=== PATIENT | male | born 1960 | race Caucasian/White ===

== ENCOUNTER 2024-07-09 09:51 | Outpatient (RCR) | payer MEDICAID, SELFPAY ==
--- NOTE | 2024-07-09 12:49 | CTCFLWUP_ITS ---
Patient: VILMA REICH : 1960 Page 2 of 2 FOLLOW UP NOTE DATE OF SERVICE: 07/09/2024 NAME: VILMA REICH ACCOUNT: [id number] : 1960 AGE: 64 INTERVAL HISTORY: Denies any problems. Patient is doing well. Says have fatigue at times but otherwise no other complaints. No change in appetite or change in the stool caliber. 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 Status post right hemicolectomy (07/07/2022) DATE OF DIAGNOSIS: 05/24/2022 STAGE/TNM: Stage II invasive adenocarcinoma well-differentiated TREATMENT HISTORY: Care?Plan Start?Date Cycle Day Intent Hemicolectomy but no chemotherapy was done HISTORY OF PRESENT ILLNESS: Vilma Reich is a 64-year-old ENG speaking male has been having diffuse abdominal discomfort for last 3 to 4 months prior to the diagnosis of colon cancer. 05/24/2022: Colonoscopy? 06/15/2022: CT scan of the abdomen and pelvis with IV contrast? 07/07/2022: Mr. Reich had right hemicolectomy? 08/09/2022: CEA 1.0 09/22/2022: CEA 1.1 09/15/2022: CT scan of the chest with IV contrast 09/25/2022: Hemoglobin 10.9, MCV 77, WBC 8.3, ANC 5.5, platelets 447,000. CEA 1.4 October 05, 2022:: Colaris test is negative for Sauceda syndrome 12/19/2023: CT scan of the chest abdomen and pelvis with IV contrast OTHER MEDICAL HISTORY/CONDITIONS: Colon?CA Right pinky finger surgery - 1979' Right hemicolectomy 07/07/2022 FAMILY HISTORY: Mother:?colon/?rectal???dec SOCIAL HISTORY: Occupational?History:?Disabled - [employer] Education?Level:?Completed High School Marital?Status:? Tobacco?Pack?per?Day:?0 Tobacco?Use:?Denies ETOH?Use:?Denies Drug?Note:?Denies Social?History?Note:?Son?lives?with?pt MEDICATIONS: 1. atorvastatin - 20 mg 1 tab Every day before sleep 2. Fish Oil - 1,000 mg 1 Capsule Daily 3. lisinopril - 30 mg 2 tab Daily 4. omeprazole - 20 mg 1 tab Daily Medications Last Reconciled by Mireille Montanez MA on 07/09/2024 ALLERGIES: CODEINE PHOSPHATE REVIEW OF SYSTEMS: A complete 14-point review of systems was performed and is negative except as noted in interval history. PHYSICAL EXAMINATION: VITAL SIGNS: Temperature?98, B/P?133/78, Oxygen?Saturation?94% Weight?201?lbs PAIN: 0 - No pain ECOG Performance Status: 0 - Asymptomatic and fully active GENERAL APPEARANCE: Appears well, in no apparent distress, appropriately interactive. HEENT: Normocephalic, no temporal wasting, normal conjunctiva, no scleral icterus, normal hearing, lips without lesions, neck normal range of motion. CARDIOVASCULAR: Not assessed. PULMONARY: Normal respiratory effort, no respiratory distress or use of accessory muscles, speaking in full sentences, no tachypnea. EXTREMITIES: No pedal edema or cyanosis. SKIN: Normal skin appearance. NEUROLOGIC: Alert and oriented x4. PSHYCHIATRIC: Appropriate affect, mood normal, behavior normal, intact thought and speech. LABORATORY DATA: I have personally reviewed and interpreted each of the patient?s relevant lab tests, abnormal findings are below: Date ASSESSMENT/PLAN: 1. 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 Status post right hemicolectomy (07/07/2022) Colaris test is negative for Sauceda syndrome Mom had colon cancer at age 62. CEA normal #2 patient have anemia Reviewed old labs and had severe iron deficiency Will repeat labs hypertension #3 elevated creatinine Advised oral hydration Follow with the PCP for better control of hypertension CBC CMP CEA ferritin iron studies B12 folic acid erythropoietin level RETURN TO CLINIC: 1 week to review iron anemia labs and 6 months for routine visit BILLING AND COMPLIANCE: I reviewed external records from providers outside my specialty as summarized above. I spent a total of 50 minutes on this patient?s care on the day of their visit excluding time spent related to any billed procedures. This time includes time spent with the patient as well as time spent documenting in the medical record, reviewing patients records and tests, obtaining history, placing orders, communicating with other healthcare professionals, counseling the patient, family or caregiver, and/or care coordination for the diagnoses above. Electronically Signed by: Lorenzo Choi MD T: 12:47 PM CC: Silviano?Arianna? PCP: Avril Mccracken Referring: Avril Mccracken This document was completed utilizing speech recognition software. Grammatical errors, random word insertions, pronoun errors, and incomplete sentences are an occasional consequence of this system due to software limitations, ambient noise, and hardware issues. Any formal questions or concerns about the content, text or information contained within the body of this dictation should be directly addressed to the provider for clarification.
== END 2024-07-25 23:59 | disposition home or self-care (01) ==
LOC: SCTC 09:51
PROVIDERS: PCP Family Medicine; Referring Provider Family Medicine; Visit Provider Internal Medicine Hematology & Oncology
DX: C18.2 Malignant neoplasm of ascending colon (principal); Z90.49 Acquired absence of other specified parts of digestive tract; Z80.0 Family history of malignant neoplasm of digestive organs; D50.9 Iron deficiency anemia, unspecified; R94.4 Abnormal results of kidney function studies
CPT/HCPCS: 99212; G0463

== ENCOUNTER 2024-08-06 11:53 | Outpatient (RCR) | payer MEDICAID, SELFPAY | END 2024-08-25 23:59 | disposition home or self-care (01) | LOC: SCTC 11:53 | PROVIDERS: PCP Family Medicine; Referring Provider Family Medicine; Visit Provider Nurse Practitioner Family | DX: C18.2 Malignant neoplasm of ascending colon (principal); D50.9 Iron deficiency anemia, unspecified | CPT/HCPCS: 99212; G0463 ==

== ENCOUNTER 2024-09-18 14:46 | Outpatient (RCR) | payer MEDICAID, SELFPAY | END 2024-09-24 23:59 | disposition home or self-care (01) | LOC: SCTC 14:46 | PROVIDERS: PCP Family Medicine; Referring Provider Family Medicine; Visit Provider Nurse Practitioner Family | DX: Z09 Encounter for follow-up examination after completed treatment for conditions other than malignant neoplasm (principal); Z86.2 Personal history of diseases of the blood and blood-forming organs and certain disorders involving the immune mechanism; Z85.038 Personal history of other malignant neoplasm of large intestine | CPT/HCPCS: 99212; G0463 ==

== ENCOUNTER 2024-12-18 11:28 | Outpatient (RCR) | payer MEDICAID, SELFPAY | END 2024-12-25 23:59 | disposition home or self-care (01) | LOC: SCTC 11:28 | PROVIDERS: PCP Family Medicine; Referring Provider Family Medicine; Visit Provider Nurse Practitioner Family | DX: C18.2 Malignant neoplasm of ascending colon (principal); Z90.49 Acquired absence of other specified parts of digestive tract; D50.9 Iron deficiency anemia, unspecified; E29.1 Testicular hypofunction | CPT/HCPCS: 99212; G0463 ==

== ENCOUNTER 2025-03-04 11:45 | Day surgery (SDC) | payer MEDICAID, SELFPAY ==
[2025-03-03 15:14] VITALS: BMI 30.4
[2025-03-04] VITALS (8 sets, daily range): BP systolic 107–155; BP diastolic 70–91; PULSE 64–95; RESP 11–22; TEMP 36.7–37.4; O2SAT 92–98; BMI 30.4
[2025-03-04] MEDS: RINGERS LACTATED 1000 ML 1,000 ML 100 ML IV (13:44)
[2025-03-04] MEDS: MIDAZOLAM INJ 1 MG/ML VIAL 2 ML (ASD USE ONLY) 2 MG IVP (13:47)
[2025-03-04] MEDS: fentaNYL CIT INJ 50 mCg/ML AMP 2ML (ASD USE ONLY) IVP (13:51)
== END 2025-03-04 14:30 | disposition home or self-care (01) ==
PROVIDERS: PCP Family Medicine; Referring Provider Surgery; Visit Provider Surgery
PROC: 0DBE8ZX Excision of Large Intestine, Via Natural or Artificial Opening Endoscopic, Diagnostic (ICD-10-PCS; CPT 45380; principal; 2025-03-04 14:30)
DX: Z12.11 Encounter for screening for malignant neoplasm of colon (principal); K57.30 Diverticulosis of large intestine without perforation or abscess without bleeding; Z90.49 Acquired absence of other specified parts of digestive tract; Z86.0100 Personal history of colon polyps, unspecified
CPT/HCPCS: 45378; J1200; J2250; J3010; J7120

== ENCOUNTER 2025-03-09 11:23 | Outpatient (RCR) | payer MEDICAID, SELFPAY ==
--- NOTE | 2025-03-22 23:19 | CTCFLWUP_ITS ---
Patient: VILMA REICH : 1960 Page 3 of 4 FOLLOW UP NOTE DATE OF SERVICE: 03/09/2025 NAME: VILMA REICH ACCOUNT: [id number] : 1960 AGE: 64 INTERVAL HISTORY: Summary patient is here to follow-up on the history of colon cancer. Patient had hemicolectomy completed in 2022. 12/19/2023 CT scan chest abdomen pelvis was completed and no interval metastatic disease. Labs show mild anemia with a hemoglobin of 12.9 and very low iron saturation at 14. Patient also have very low testosterone at 186 and ferritin is 107. Patient's low hemoglobin is likely from iron deficiency as well as from low testosterone. 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 Status post right hemicolectomy (07/07/2022) DATE OF DIAGNOSIS: 05/24/2022 STAGE/TNM: Stage II invasive adenocarcinoma well-differentiated TREATMENT HISTORY: Care?Plan Start?Date Cycle Day Intent HISTORY OF PRESENT ILLNESS: Vilma Reich is a 62-year-old ENG speaking male has been having diffuse abdominal discomfort for last 3 to 4 months prior to the diagnosis of colon cancer. colonoscopy showed invasive adenocarcinoma well-differentiated in ascending colon 07/07/2022: Mr. Reich had right hemicolectomy? 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 Tobacco?Pack?per?Day:?0 Tobacco?Use:?Denies ETOH?Use:?Denies Drug?Note:?Denies Social?History?Note:?Son?lives?with?pt MEDICATIONS: 1. atorvastatin - 20 mg 1 tab Every day before sleep 2. ferrous gluconate - 324 mg (37.5 mg iron) 1 tab 1 tab every other day 3. ferrous sulfate - 325 mg (65 mg iron) 1 tab one tab po q daily with small glass of orange juic 4. Fish Oil - 1,000 mg 1 Capsule Daily 5. lisinopril - 30 mg 2 tab Daily 6. omeprazole - 20 mg 1 tab Daily Medications Last Reconciled by Rosy Sidhu MD on 03/09/2025 ALLERGIES: CODEINE PHOSPHATE REVIEW OF SYSTEMS: A complete 14-point review of systems was performed and is negative except as noted in interval history. PHYSICAL EXAMINATION: VITAL SIGNS: Temperature?98.2, B/P?155/71, Oxygen?Saturation?97% Weight?200?lbs PAIN: 0 - No pain Not done visit was a telemedicine. LABORATORY DATA: I have personally reviewed and interpreted each of the patient?s relevant lab tests, abnormal findings are below: Date ASSESSMENT/PLAN: Vilma Srivastava, 64-year-old male with a history of adenocarcinoma of the right colon, iron deficiency anemia, and low testosterone, presenting for follow-up. 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 Status post right hemicolectomy (07/07/2022) Assessment: Patient has a history of adenocarcinoma of the right colon. Mother of patient had colon cancer at the age of 62. Colaris test negative for Sauceda syndrome. Surveillance colonoscopies due 04/2025. Patient denies any abnormal stools, black stools, weight loss, or loss of energy. Plan: - Joo test - Order CBC, CMP, and CEA prior to next follow-up - Follow-up appointment in 3 months Iron deficiency anemia Assessment: Patient has a history of iron deficiency anemia. He was previously taking ferrous sulfate daily but ran out of medication about 2 months ago. Iron saturation is low at 14%. Hemoglobin is within normal limits. Patient reports he was tolerating oral ferrous sulfate well and would like to restart oral ferrous sulfate . Plan: - Restart ferrous sulfate 325 mg PO daily -Follow-up with PCP for low testosterone Low testosterone level Assessment: Patient has a history of low testosterone level. This may be a contributing factor to anemia. Patient has an upcoming appointment with PCP for management of low testosterone level. Plan: - Continue follow-up with PCP for management of low testosterone and other medical conditions such as hypertension ORDERS: Order # Description [id number] Follow Up 6 Month + CEA + RETURN TO CLINIC: I reviewed the diagnosis, prognosis, and recommended treatment/procedure options with the patient (and/or their legal business services sales representative), including the potential benefits, risks, side effects and alternative therapies. We also discussed the option of no treatment and the possibility of clinical trial participation, if applicable. All questions were addressed, and they demonstrated understanding. They provided informed consent to proceed with the proposed plan of care. BILLING AND COMPLIANCE: I reviewed external records from providers outside my specialty as summarized above. I spent a total of 50 minutes on this patient?s care on the day of their visit excluding time spent related to any billed procedures. This time includes time spent with the patient as well as time spent documenting in the medical record, reviewing patients records and tests, obtaining history, placing orders, communicating with other healthcare professionals, counseling the patient, family or caregiver, and/or care coordination for the diagnoses above. Electronically Signed by: Lorenzo Choi MD T: 11:17 PM CC: Silviano?ESTHER Keller PCP: Augustin Adam Referring: Augustin Adam This document was completed utilizing speech recognition software. Grammatical errors, random word insertions, pronoun errors, and incomplete sentences are an occasional consequence of this system due to software limitations, ambient noise, and hardware issues. Any formal questions or concerns about the content, text or information contained within the body of this dictation should be directly addressed to the provider for clarification.
== END 2025-03-27 23:59 | disposition home or self-care (01) ==
LOC: SCTC 11:23
PROVIDERS: PCP Family Medicine; Referring Provider Family Medicine; Visit Provider Internal Medicine Hematology & Oncology
DX: Z08 Encounter for follow-up examination after completed treatment for malignant neoplasm (principal); Z85.038 Personal history of other malignant neoplasm of large intestine; Z90.49 Acquired absence of other specified parts of digestive tract; D50.9 Iron deficiency anemia, unspecified; E29.1 Testicular hypofunction; I10 Essential (primary) hypertension
CPT/HCPCS: 99212; G0463

== ENCOUNTER → 2025-04-10 | Outpatient (CLI) | payer MEDICAID, SELFPAY ==
[2025-04-09 12:10] LABS: Alanine Aminotransferase 32 U/L (10-49); Albumin, Serum 5.0 gm/dL (3.4-4.8); Albumin/Globulin Ratio 2.9 (1.2-2.2); Alkaline Phosphatase 57 U/L (46-116); Anion Gap 10 (7-16); Aspartate Amino Transferase 24 U/L (0-34); BUN/Creatinine Ratio 16 Ratio (12-20); Bilirubin,Total 0.2 mg/dL (0.3-1.2); Blood Urea Nitrogen 19 mg/dL (9-23); Calcium 9.5 mg/dL (8.3-10.6); Calcium (Corrected) 9.5 mg/dL (8.5-10.1); Carbon Dioxide 26.0 mMol/L (20.0-31.0); Chloride 108 mMol/L (98-107); Creatinine (Component) 1.2 mg/dL (0.6-1.3); Globulin 1.7 gm/dL (2.3-3.5); Glucose 102 mg/dL (74-106); Osmolality,Calculated 289 (275-295); Potassium 4.4 mMol/L (3.4-5.1); Sodium 144 mMol/L (136-145); Total Protein 6.7 gm/dL (5.7-8.2); eGFR > 60 See Note
[2025-04-09 12:30] LABS: Basophils # (Auto) 0.0 Thou/mm3 (0.0-0.2); Basophils % (Auto) 1 % (0-2.5); Eosinophils # (Auto) 0.1 Thou/mm3 (0.0-0.5); Eosinophils % (Auto) 1 % (0-10); Hematocrit 36.9 % (41.0-53.0); Hemoglobin 12.4 g/dL (13.5-16.0); Immature Granulocytes Auto 0.03 Thou/mm3 (0.00-0.00); Lymphocytes # (Auto) 1.7 Thou/mm3 (1.0-4.8); Lymphocytes % (Auto) 24 % (10-50); Mean Corpuscular HGB Conc 33.6 g/dl (31.0-37.0); Mean Corpuscular Hemoglobin 30.2 pg (25.0-35.0); Mean Corpuscular Volume 90 fL (80-100); Monocytes # (Auto) 0.6 Thou/mm3 (0.0-0.8); Monocytes % (Auto) 8 % (0-12); Neutrophils # (Auto) 4.8 Thou/mm3 (1.8-7.7); Neutrophils % (Auto) 67 % (37-80); Nucleated Red Blood Cell # 0.00 Thou/mm3 (0.00-0.00); Nucleated Red Blood Cell % 0 /100 WBC (0); Platelet Count 363 Thou/mm3 (140-440); RDW Standard Deviation 43.5 fL (35.1-43.9); Red Blood Count 4.11 Miln/mm3 (4.50-5.90); White Blood Count 7.2 Thou/mm3 (3.8-10.6)
[2025-04-09 12:47] LABS: Carcinoembryonic Antigen 0.5 ng/mL (0.0-5.0)
--- NOTE | 2025-04-10 13:00 | XR_ITS ---
Examination: CT chest with intravenous contrast CT abdomen with intravenous contrast CT pelvis with intravenous contrast 2-D coronal and sagittal reconstructions Time of exam: April 10, 2025, 1328 hours, comparison December 19, 2023, CT abdomen pelvis June 26, 2023, CT chest September 15, 2022 INDICATIONS: Diagnosis colon cancer diagnosis 2022 post surgery restaging CTDI: vol (mGy) : 19.5 DLP: (mGycm): 1014 Technique: Multiple axial images of the chest, abdomen and pelvis with intravenous contrast, 3.0 mm slice thickness. Images obtained post intravenous injection Isovue 370 60 cc. 2-D sagittal and coronal reconstructions. Low dose protocols were performed. One or more of the following dose reduction techniques were used; automated exposure control, adjustment of the mA and/or KV according to patient size, use of iterative reconstruction technique. Findings: No thoracic aortic aneurysmal dilatation or dissection Pulmonary artery calcification is reduced No paratracheal tracheobronchial or bronchopulmonary adenopathy No pneumonia, pulmonary edema, pleural effusions or pulmonary nodules Diffuse fatty infiltration throughout the liver no focal liver or splenic lesions No gallstones No pancreatic or adrenal mass No interval abdominal or pelvic lymphadenopathy, no hydronephrosis Aortic calcification no aneurysmal dilatation No pericecal inflammatory change Scattered colonic diverticulosis No prostatomegaly Urinary bladder intact Prominent osteopenia, moderate to advanced degenerative disc disease lower 3 lumbar levels IMPRESSION: No interval metastatic disease
== END | disposition home or self-care (01) ==
PROVIDERS: PCP Family Medicine; Referring Provider Internal Medicine Hematology & Oncology; Visit Provider Internal Medicine Hematology & Oncology
DX: C18.2 Malignant neoplasm of ascending colon (principal)
CPT/HCPCS: 36415; 71260; 74177; 80053; 82378; 85025; A4649; Q9967

== ENCOUNTER 2025-05-18 08:16 | Outpatient (RCR) | payer MEDICAID, SELFPAY | END 2025-05-27 23:59 | disposition home or self-care (01) | LOC: SCTC 08:16 | PROVIDERS: PCP Family Medicine; Referring Provider Family Medicine; Visit Provider Internal Medicine Hematology & Oncology | DX: C18.2 Malignant neoplasm of ascending colon (principal); Z90.49 Acquired absence of other specified parts of digestive tract | CPT/HCPCS: 36415 ==